=== PATIENT | female | born 1975 | race Hispanic/Latino ===

== ENCOUNTER 2018-02-10 06:14 | Observation (INO) | payer MEDICARE ==
[2018-02-08 15:01] LABS: Basophils # (Auto) 0.1 K/mm3 (0.0-0.1); Basophils % (Auto) 0.6 % (0.0-1.8); Eosinophils # (Auto) 0.3 K/mm3 (0.0-0.4); Eosinophils % (Auto) 2.8 % (0.0-4.3); Hematocrit 44.7 % (30.3-42.9); Hemoglobin 14.8 gm/dl (10.1-14.3); Lymphocytes # (Auto) 2.7 K/mm3 (1.2-5.4); Lymphocytes % (Auto) 25.4 % (13.4-35.0); Mean Corpuscular HGB Conc 33 % (30-34); Mean Corpuscular Hemoglobin 30 pg (28-32); Mean Corpuscular Volume 92 fl (79-97); Monocytes # (Auto) 0.4 K/mm3 (0.0-0.8); Monocytes % (Auto) 4.1 % (0.0-7.3); Platelet Count 251 K/mm3 (140-440); Red Blood Count 4.88 M/mm3 (3.65-5.03); Red Cell Distribution Width 15.4 % (13.2-15.2)
[2018-02-08 15:13] LABS: BUN/Creatinine Ratio 11; Blood Urea Nitrogen 9 mg/dL (7-17); Calcium 9.1 mg/dL (8.4-10.2); Hemolysis Index 9
--- NOTE | 2018-02-08 15:13 | Anesthesia Consultation ---
Anesthesia Consult and Med Hx Date of service: 02/08/18 - Airway Anesthetic Teeth Evaluation: Poor ROM Head & Neck: Adequate Mental/Hyoid Distance: Adequate Mallampati Class: Class I Intubation Access Assessment: Probably Good - Pulmonary Exam CTA: Yes - Cardiac Exam Cardiac Exam: RRR - Pre-Operative Health Status ASA Pre-Surgery Classification: ASA3 Proposed Anesthetic Plan: General Nerve Block: discussed the possible TAP block - Pulmonary Hx Smoking: Yes - Cardiovascular System Hx Heart Attack/AMI: Yes ("mild" ? 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
[~2018-02-10 06:14] MED LIST: MARCAINE 0.5% INFILTRATI NR; NACL 0.9% 1000 ML 1,000 ML IV SCH; NACL P/F VIAL (10 ML) INFILTRATI NR; PEPCID IV NR; SUBLIMAZE IV SCH; VERSED IV NR; XYLOCAINE 1% 20 mL INFILTRATI NR
[2018-02-10] MEDS ORDERED: NACL BACTERIOSTATIC INFILTRATI ONE (06:46)
[2018-02-10] MEDS ORDERED: XYLOCAINE 1% 20 mL INFILTRATI NR ×2 (07:00→08:00)
[2018-02-10] MEDS ORDERED: MARCAINE 0.5% INFILTRATI NR ×2 (07:00→08:00)
[2018-02-10] MEDS ORDERED: SUBLIMAZE IV SCH (07:00)
[2018-02-10] MEDS ORDERED: VERSED IV NR ×2 (07:00→08:00)
[2018-02-10] MEDS ORDERED: PEPCID IV NR (07:00)
[2018-02-10] MEDS ORDERED: NACL P/F VIAL (10 ML) INFILTRATI NR (07:00)
[2018-02-10] MEDS ORDERED: GELFOAM POWDER 1GM MM ONE ×2 (07:33→10:00)
[2018-02-10] MEDS ORDERED: THROMBIN (BOVINE) TP ONE ×2 (07:33→10:00)
[2018-02-10] MEDS ORDERED: NEOSPORIN GU IR ONE ×2 (07:33→10:00)
[2018-02-10] MEDS ORDERED: XYLOCAINE MPF 2% ONE (07:35)
[2018-02-10] MEDS ORDERED: ZEMURON IV ONE (07:35)
--- NOTE | 2018-02-10 07:35 | History and Physical Report ---
History of Present Illness Date of examination: 02/08/18 Date of admission: 02/10/2018 Chief complaint: Chronic pelvic pain and dyspareunia History of present illness: 43-year-old with a history of worsening chronic pelvic pain. The patient reports that her pain has caused significant limitations in her daily activities. She also reports worsening dyspareunia. Patient underwent a pelvic ultrasound without any significant findings. She has elected to undergo definitive surgical management. Past History Past Medical History: hypertension, diabetes, thyroid disease, other (visual impairment; neuropathy) Past Surgical History: cholecystectomy, tonsillectomy, section, other ( hernia repair; tubal ligation) Social history: , lives with family, smoking - Obstetrical History : 8 Para: 3 Medications and Allergies Allergies Allergy/AdvReac Type Severity Reaction Status Date / Time No Known Allergies Allergy Unverified 02/08/18 08:46 Home Medications Medication Instructions Recorded Confirmed Last Taken Type AtorvaSTATin [Lipitor] 40 mg PO QHS 02/08/18 02/08/18 Unknown History Dapagliflozin Propanediol (Nf) 5 mg PO DAILY 02/08/18 02/08/18 Unknown History [Farxiga (Nf)] Levothyroxine [Synthroid] 75 mcg PO QAM 02/08/18 02/08/18 Unknown History Pioglitazone [Actos] 15 mg PO QDAY 02/08/18 02/08/18 Unknown History Pregabalin [Lyrica] 225 mg PO BID 02/08/18 02/08/18 Unknown History Sitagliptin Phos/Metformin HCl 1 tab PO HS 02/08/18 02/08/18 Unknown History [Janumet XR 100-1,000 mg] glipiZIDE XL [Glucotrol Xl] 10 mg PO BID 02/08/18 02/08/18 Unknown History Active Meds: Active Medications Sodium Chloride (Nacl 0.9% 1000 Ml) 1,000 mls @ 42 mls/hr IV DIRECT BUSHRA Review of Systems All systems: negative Genitourinary: pelvic pain - Vital Signs Vital signs: Vital Signs Temp Pulse Resp BP 98.7 F 90 20 100/62 02/08/18 14:25 02/08/18 14:25 02/08/18 14:25 02/08/18 14:25 Temp Pulse Resp BP Pulse Ox 98.7 F 90 20 100/62 02/08/18 14:25 02/08/18 14:25 02/08/18 14:25 02/08/18 14:25 - Physical Exam Breasts: Positive: deferred Cardiovascular: Regular rate Lungs: Positive: Clear to auscultation Abdomen: Positive: soft, other (morbidly obese) Results Result Diagrams: 02/08/18 14:30 02/08/18 14:30 Abnormal lab results 02/10/18 Range/Units 07:06 POC Glucose 195 H (70-105) All other labs normal. Assessment and Plan - Patient Problems (1) Chronic pelvic pain in female Current Visit: Yes Status: Acute Plan to address problem: Patient is scheduled for a robotic hysterectomy and bilateral salpingo- oophorectomy (2) Dyspareunia Current Visit: Yes Status: Acute
[2018-02-10] MEDS ORDERED: DIPRIVAN 10 MG/ML IV ONE (07:36)
[2018-02-10] MEDS ORDERED: DILAUDID ONE (07:36)
[2018-02-10] MEDS ORDERED: CLONIDINE 1,000 MCG/10 ML VIAL EP NR (08:00)
[2018-02-10] MEDS ORDERED: ANCEF/STERILE WATER 2 GM/20 ML 2 GM/20 ML SYRINGE IV NR (08:00)
[2018-02-10] MEDS ORDERED: DECADRON IV NR (08:00)
[2018-02-10] MEDS ORDERED: NEURONTIN PO NR (08:00)
[2018-02-10] MEDS ORDERED: SUBLIMAZE IV NR (08:00)
[2018-02-10] MEDS ORDERED: PEPCID PO NR (08:00)
[2018-02-10] MEDS ORDERED: NACL 0.9% 1000 ML 1,000 ML ONE (09:35)
[2018-02-10] MEDS ORDERED: NACL 0.9% IR ONE ×2 (10:00)
[2018-02-10] MEDS ORDERED: WATER FOR IRRIG STERILE IR ONE (10:00)
[2018-02-10] MEDS ORDERED: ZOFRAN ONE (10:17)
[2018-02-10] MEDS ORDERED: NEOSTIGMINE ONE (10:23)
[2018-02-10] MEDS ORDERED: ROBINUL ONE (10:23)
--- NOTE | 2018-02-10 11:20 | Operative Report ---
Operative Report Operative Report: Date of surgery: 02/10/2018 Preoperative diagnoses: Chronic pelvic pain and dyspareunia Postoperative diagnoses: Same as above; pelvic adhesive disease Procedure: Robotic hysterectomy and bilateral salpingo-oophorectomy; extensive lysis of adhesions Surgeon: Belem Coyle M.D. Citrus Fruit Colorer: Srinath Berman Anesthesia: Gen. endotracheal anesthesia Estimated blood loss: Less than 100 mL Pathology: Uterus, cervix, tubes and ovaries bilaterally Indication: 43 year-old day history of chronic pelvic pain and dyspareunia. The patient has elected to undergo definitive surgical management. Procedure: The patient was taken to the operating room and given general endotracheal anesthesia without complication. She is prepped and draped in a normal sterile fashion. A bivalve speculum was placed in the patient's vagina and a single- tooth tenaculum placed on the anterior lip of the cervix. The uterus was sounded with the uterine sound. A [employer] uterine manipulator was placed in the bivalve speculum was then removed. Attention was then turned to the patient's abdomen where a 12 millimeter supra umbilical skin incision was then made. A Veress needle was placed and peritoneal entry was verified water-filled syringe. Insufflation of the peritoneal cavity was performed with CO2 gas. The 12 mm trocar was then placed under direct visualization. An additional 8 mm trocar was placed on the patient's left and right lateral side just opposite of the supraumbilical trocar. An additional 5 mm right lateral trocar was then placed as the accessory port. Upon placement of the 12 mm trocar that was noted to be extensive omental adhesions to the anterior abdominal wall. The patient has a history of a prior hernia repair with suspected mesh placement. Visualization was poor through the 12 mm site secondary to the extensive adhesions. Lysis of adhesions was performed with the monopolar scissors until adequate visualization was obtained. The Tristan Toure device was used to close the fascia of the 12 mm incision. The patient was then placed in steep Trendelenburg. The da Ermias robot was then engaged. A fenestrated forcep was placed in arm 2 and a vessel sealer was placed in arm 1. The surgeon then transferred to the surgical console. The infundibulopelvic ligament was then isolated on the right. The vessel sealer was used to coagulate the ligament which was then transected. The tube and ovary were transected from the supply. The round ligament was then coagulated and transected also. The vesicouterine peritoneum was then entered from the patient's right side. The uterine vessels were then coagulated with the vessel sealer. The vessels were then transected . Attention was then turned to the patient's left side where the infundibulopelvic ligament and mesosalpinx were again isolated coagulated and transected. The vesical peritoneum was then entered from the left and joined in the midline. Peritoneum was reflected off of the lower uterine segment. Uterine vessels were then coagulated and then transected. The blood supply to the uterus was adequately contained, a posterior colpotomy was made. The V care ring was visualized. Posterior colpotomy was created with the monopolar scissors. The incision was continued circumferentially until anterior colpotomy was made. The cervix and uterus were amputated from the vaginal cuff. The uterus was then removed along with the tubes and ovaries bilaterally through the vagina and a warm laparotomy sponge was placed and maintain the pneumoperitoneum. The vaginal cuff was then closed in a running fashion with V lock suture. Irrigation of the pelvis was performed. Gelfoam with thrombin and Surgicel were applied to the incision. The skin was then reapproximated with 4-0 Monocryl. The tissue was sent to pathology which included the cervix, uterus, tubes and ovaries. The patient was then successfully extubated. She was then taken to the recovery room in stable condition. All sponge laps and needle counts were correct x2.
[2018-02-10] MEDS ORDERED: NARCAN 0.4 MG/1 ML IV PRN (11:24)
[2018-02-10] MEDS ORDERED: MILK OF MAGNESIA PO PRN (11:25)
[2018-02-10] MEDS ORDERED: TYLENOL PO PRN (11:25)
[2018-02-10] MEDS ORDERED: ZOFRAN IV PRN (11:25)
[2018-02-10] MEDS ORDERED: PERCOCET 5/325 PO PRN (11:25)
[2018-02-10] MEDS ORDERED: MOTRIN PO PRN (11:25)
[2018-02-10] MEDS ORDERED: MORPHINE PCA 30MG/30ML IV SCH (12:00)
[2018-02-10] MEDS: LACTATED RINGERS 1,000 ML IV SCH ×2 (14:33→21:52)
[2018-02-10] MEDS: TORADOL IV SCH (14:33)
[2018-02-10] MEDS: GLUCOTROL XL PO SCH (22:13)
[2018-02-11] MEDS: TORADOL IV SCH ×3 (01:32→12:41)
[2018-02-11] MEDS ORDERED: SYNTHROID PO SCH ×2 (06:00)
[2018-02-11] MEDS: LACTATED RINGERS 1,000 ML IV SCH (07:55)
[2018-02-11] MEDS ORDERED: ACTOS PO SCH (08:00)
[2018-02-11 08:14] VITALS: BP 97/53
[2018-02-11] MEDS: GLUCOTROL XL PO SCH (09:13)
[2018-02-11] MEDS ORDERED: LOVENOX SUB-Q SCH ×2 (10:00)
[2018-02-11 10:06] LABS: Hematocrit 37.3 % (30.3-42.9); Hemoglobin 12.4 gm/dl (10.1-14.3)
[2018-02-11 10:45] LABS: BUN/Creatinine Ratio 17; Blood Urea Nitrogen 12 mg/dL (7-17); Calcium 8.5 mg/dL (8.4-10.2); Hemolysis Index 5
--- NOTE | 2018-02-11 11:48 | Progress Note ---
Assessment and Plan A: POD#1 s/p robotic hysterectomy, diabetes, tobacco use, obesity P: Discharge home with follow up in [address] Coyle. Pt has an appt with her PCP on ThuFebruary 15, 2018. Subjective - Subjective Date of service: 02/11/18 Principal diagnosis: s/p robotic hysterectomy Interval history: Pt asking to go home. She reports pain well controlled, flatus and voiding without difficulty. Patient reports: appetite normal, voiding normally, pain well controlled, flatus , ambulating normally, no bowel movement, no nauseated Objective - Vital Signs Latest vital signs: Vital Signs Temp Pulse Resp BP BP Pulse Ox 02/11/18 10:39 18 02/11/18 10:30 18 02/11/18 08:48 98.8 F 86 18 97/53 95 02/11/18 08:08 98.8 F 86 18 97/53 95 02/11/18 07:52 16 02/11/18 04:00 98.7 F 72 16 112/64 02/10/18 23:30 98.7 F 72 18 101/69 02/10/18 22:00 18 96 02/10/18 20:15 98.6 F 75 18 104/64 02/10/18 12:35 16 02/10/18 12:30 97.8 F 82 16 112/71 93 02/10/18 12:25 97.8 F 82 20 112/71 96 02/10/18 12:15 76 16 117/82 96 02/10/18 12:00 97.8 F 76 16 127/73 96 Intake and Output 02/10/18 02/11/18 02/11/18 22:59 06:59 14:59 Intake Total 1916.756 0058 Output Total 450 2250 Balance 1064.583 -1250 Intake: IV 646.736 6332 Lactated Ringers 1,000 ml 484.035 0969 @ 125 mls/hr IV DIRECT BUSHRA Rx#:[id number] Oral 120 Intake, Free Water 480 Output: Urine 450 2250 Indwelling Catheter 450 1850 Void 400 Other: Total, Intake Amount 120 Total, Output Amount 450 400 Voiding Method Toilet Toilet Toilet # Voids Indwelling Catheter 1 Void 1 1 - Exam Breasts: Present: deferred Cardiovascular: Present: Regular rate Lungs: Present: Clear to auscultation (occassional wheezes ) Abdomen: Present: soft (obese ) Extremities: Present: normal Incision: Present: intact - Labs Labs: Abnormal lab results 02/10/18 02/10/18 02/11/18 Range/Units 11:22 22:03 08:48 Glucose 155 H (65-100) mg/dL POC Glucose 205 H 247 H (70-105)
--- NOTE | 2018-02-11 11:53 | Discharge Summary ---
Providers - Providers Date of Admission: 02/10/18 11:41 Date of discharge: 02/11/18 Attending physician: TASHI RAPP Primary care physician: SOTO SIMS Hospitalization Reason for admission: other (hysterectomy ) Procedure details: Please see operative note. Incision: intact Other procedures: none complications: none Hospital course: Pt was admitted for robotic hysterectomy which she tolerated well. Her postoperative course was uncomplicated and she met discharge criteria on POD#1. She will follow up with Dr Rapp in 4 weeks. Condition at discharge: Stable Disposition: DC-01 TO HOME OR SELFCARE - Discharge Diagnoses (1) Obesity Status: Acute Qualifiers: Body mass index: BMI 35.0-35.9 (2) Tobacco abuse Status: Acute (3) Diabetes Status: Acute Qualifiers: Diabetes mellitus middle or intermediate [employer] principal insulin use: unspecified usp insulin use status Diabetes mellitus complication status: with unspecified complications (4) Chronic pelvic pain in female Status: Acute (5) Dyspareunia Status: Acute Plan - Discharge Medications Prescriptions: Ibuprofen [Motrin] 800 mg PO Q8HR PRN #60 tablet PRN Reason: Pain Oxycodone HCl/Acetaminophen [Percocet 7.5/325 mg] 1 each PO Q6HR PRN #45 tablet PRN Reason: Pain - Provider Discharge Summary Activity: routine, no sex for 6 weeks, no heavy lifting 4 weeks, no strenuous exercise Diet: routine Instructions: routine Additional instructions: [] Smoking cessation referral if applicable(refer to patient education folder for contact #) [] Refer to [facility] Call your doctor immediately for: * Fever > 100.5 * Heavy vaginal bleeding ( >1 pad per hour) * Severe persistent headache * Shortness of breath * Reddened, hot, painful area to leg or breast * Drainage or odor from incision. * Keep incision clean and dry at all times and follow doctor's instructions regarding bathing/showering - Follow up plan Follow up: SOTO SIMS MD [Primary Care Provider] - 7 Days TASHI RAPP MD [Staff Physician] - 03/11/18 (post op exam- please call to schedule appt )
== END 2018-02-11 12:50 | disposition home or self-care (01) ==
LOC: OR 06:14 → OB 11:41
PROVIDERS: ADMIT Obstetrics & Gynecology; ATTEND Obstetrics & Gynecology
DX: R10.2 Pelvic and perineal pain (principal); N94.10 Unspecified dyspareunia; I10 Essential (primary) hypertension; E11.9 Type 2 diabetes mellitus without complications; F17.200 Nicotine dependence, unspecified, uncomplicated
CPT/HCPCS: 36415; 58552; 64450; 80048; 82962; 85014; 85018; 85025; 86850; 86900; 86901; 88307; 96372; 96374; 96375; A4217; A4649; G0378; J0690; J0735; J1100; J1170; J1650; J1885; J2250; J2270; J2405; J2704; J2710; J3010; J7030; J7120; S2900

== ENCOUNTER 2020-10-03 06:42 | Day surgery (SDC) | payer MEDICARE ==
[~2020-10-03 06:42] MED LIST changes: +LACTATED RINGERS 1,000 ML IV SCH; -MARCAINE 0.5% INFILTRATI NR; +MIDAZOLAM 2 MG/2 ML INJ IV NR; -NACL 0.9% 1000 ML 1,000 ML IV SCH; -NACL P/F VIAL (10 ML) INFILTRATI NR; -PEPCID IV NR; -SUBLIMAZE IV SCH; -VERSED IV NR; -XYLOCAINE 1% 20 mL INFILTRATI NR
--- NOTE | 2020-10-03 07:37 | Anesthesia Consultation ---
Anesthesia Consult and Med Hx Date of service: 10/03/20 - Airway Anesthetic Teeth Evaluation: Poor ROM Head & Neck: Adequate Mental/Hyoid Distance: Adequate Mallampati Class: Class III Intubation Access Assessment: Possibly Difficult - Pulmonary Exam CTA: Yes - Cardiac Exam Cardiac Exam: RRR - Pre-Operative Health Status ASA Pre-Surgery Classification: ASA3 Proposed Anesthetic Plan: General - Pulmonary Hx Smoking: Yes (<1/4PPD) Hx Respiratory Symptoms: No (chronic bronchitis; no inhaler use in recent weeks) Hx Sleep Apnea: Yes (noncompliant with CPAP) - Cardiovascular System Hx Hypertension: Yes (prior hx; no meds) Hx Heart Attack/AMI: Yes (patient unsure, was told she had "mild" PR 19yrs ago) Hx Angina: No Hx Percutaneous Transluminal Coronary Angioplasty (PTCA): No Hx Cardia Arrhythmia: No - Central Nervous System CVA: Yes (remote hx, no deficits) Hx Back Pain: Yes (WITH TYRA LEG PAIN) - Gastrointestinal Hx Gastroesophageal Reflux Disease: Yes - Endocrine Hx Renal Disease: No Hx Liver Disease: No Hx Non-Insulin Dependent Diabetes: Yes Hx Hypothyroidism: Yes - Other Systems Hx Obesity: Yes (BMI 39) - Additional Comments Anesthesia Medical History Comments: No hx anesthetic complications. Patient reports N/V associated with kidney stone. Will plan GETA.
[2020-10-03] MEDS ORDERED: fentaNYL 100 MCG/2 ML INJ IV PRN (07:38)
[2020-10-03] MEDS ORDERED: FAMOTIDINE 20 MG/2 ML INJ IV NR (07:38)
--- NOTE | 2020-10-03 07:38 | Anesthesia Day of Surgery ---
Anesthesia Day of Surgery - Day of Surgery Patient Examined: Yes Patient H&P Reviewed: Yes Patient is NPO: Yes
[2020-10-03] MEDS ORDERED: SCOPOLAMINE TRANSDERMAL PATCH 72 HR TD NR (08:00)
[2020-10-03] MEDS ORDERED: ONDANSETRON 4 MG/2 ML INJ IV NR (08:00)
[2020-10-03] MEDS ORDERED: ceFAZolin/STERILE WATER 2 GM/20 ML SYRINGE IV NR (08:00)
[2020-10-03] MEDS ORDERED: ONDANSETRON 4 MG/2 ML INJ ONE (08:07)
[2020-10-03] MEDS ORDERED: propofoL 200 MG/20 ML VIAL IV ONE (08:07)
[2020-10-03] MEDS ORDERED: dexAMETHasone 20 MG/5 ML VIAL ONE (08:07)
[2020-10-03] MEDS ORDERED: SUCCINYLCHOLINE CHLORIDE 200 MG/10 ML INJ MDV ONE (08:07)
[2020-10-03] MEDS ORDERED: LIDOCAINE MPF (2%) 20 MG/1 ML VIAL 5 ML ONE (08:07)
[2020-10-03] MEDS ORDERED: fentaNYL 100 MCG/2 ML INJ ONE (08:08)
--- NOTE | 2020-10-03 09:22 | Operative Report ---
PREOPERATIVE DIAGNOSIS: Microscopic hematuria. POSTOPERATIVE DIAGNOSIS: Mild trigonitis. PROCEDURE: Cystoscopy, retrogrades. SURGEON: Dr. Fan. ANESTHESIA: General. FINDINGS: This is a woman with microscopic hematuria. CT was basically unremarkable. She now presents for evaluation. DESCRIPTION OF PROCEDURE: The patient was brought to the operating room and placed on the operating table. Following induction of anesthesia, placed in lithotomy position, prepped and draped in the usual sterile fashion. Cystourethroscopy showed some mild trigonitis. No papillary lesions. Retrograde showed good filling, good drainage with slightly malrotated left kidney. The patient tolerated the procedure well. Bimanual exam was unremarkable, brought to recovery in stable condition. JOB# [id number] LEONA/OLIMPIA
--- NOTE | 2020-10-03 09:49 | Post Operative Note ---
Date of procedure: 10/03/20 Pre-op diagnosis: hematuria Post-op diagnosis: same Findings: normal Procedure: cysto rpgs Anesthesia: GETA Surgeon: KEENA FAGAN Estimated blood loss: none Pathology: none Condition: stable Disposition: PACU
--- NOTE | 2020-10-03 09:50 | Discharge Summary ---
Short Stay Discharge Plan Activity: other (no straining ) Weight Bearing Status: Full Weight Bearing Diet: low fat, low cholesterol, low salt Follow up with: SOTO SIMS MD [Primary Care Provider] - 7 Days KEENA FAGAN MD [Staff Physician] - 7 Days
[2020-10-03 10:04] VITALS: BP 114/62
--- NOTE | 2020-10-03 10:16 | Post Anesthesia Evaluation ---
- Post Anesthesia Evaluation Patient Participated: Yes Airway Patent: Yes Stable Respiratory Function: Yes Nausea/Vomiting: No Temp > 96.8F: Yes Pain Manageable: Yes Adequeate Hydration: Yes Anesthesia Complications: No
--- NOTE | 2020-10-03 13:44 | Fluoroscopy Report ---
INTRAOPERATIVE FLUOROSCOPY: RETROGRADE UROGRAPHY INDICATION / CLINICAL INFORMATION: HEMATURIA. TECHNIQUE: Intraoperative spot images were obtained during the procedure. FINDINGS: Bilateral retrograde pyelogram performed. 10 mL Omnipaque 300 used. See operative/procedure note by performing physician for full details. Fluoroscopy Time: 17 seconds. Fluoroscopy Images: 10. Signer Name: Fabio Salinas MD Signed: 10/03/2020 1:39 PM Workstation Name: [id number]
== END 2020-10-03 10:35 | disposition home or self-care (01) ==
LOC: OR 06:42
PROVIDERS: ATTEND Urology
DX: N30.31 Trigonitis with hematuria (principal); F17.210 Nicotine dependence, cigarettes, uncomplicated; E11.42 Type 2 diabetes mellitus with diabetic polyneuropathy; G62.9 Polyneuropathy, unspecified; E66.9 Obesity, unspecified; E78.00 Pure hypercholesterolemia, unspecified; I10 Essential (primary) hypertension; G47.30 Sleep apnea, unspecified; K21.9 Gastro-esophageal reflux disease without esophagitis; E03.9 Hypothyroidism, unspecified; Z79.899 Other long term (current) drug therapy; Z98.890 Other specified postprocedural states; Z90.49 Acquired absence of other specified parts of digestive tract; Z98.51 Tubal ligation status; Z90.710 Acquired absence of both cervix and uterus; Z68.39 Body mass index [BMI] 39.0-39.9, adult; Z86.73 Personal history of transient ischemic attack (TIA), and cerebral infarction without residual deficits
CPT/HCPCS: 52005; 74420; 82962; C1758; J0330; J1100; J2250; J2405; J2704; J3010; J7120; Q9967